=== PATIENT | female | born 1995 | race Caucasian/White ===

== ENCOUNTER 2016-11-27 19:37 | Emergency (ER) | payer OTHER ==
[~2016-11-27] VITALS: Ht 172.7 cm; Wt 70.5 kg
[2016-11-27 19:42] VITALS: BP 122/83; PULSE 86; TEMP 98.1
[2016-11-27] MEDS ORDERED: AMOXICILLIN 8751 TAB PO (19:43)
[2016-11-27] MEDS ORDERED: LUTERA 0.02 MG-1 TAB PO (19:44)
== END 2016-11-27 20:40 | disposition home or self-care (01) ==
LOC: COL.ER 19:37
DX: S61.210A Laceration without foreign body of right index finger without damage to nail, initial encounter (principal); W45.8XXA Other foreign body or object entering through skin, initial encounter; Y92.009 Unspecified place in unspecified non-institutional (private) residence as the place of occurrence of the external cause; J06.9 Acute upper respiratory infection, unspecified